=== PATIENT | male | born 2000 | race Caucasian/White ===

== ENCOUNTER 2022-11-09 20:46 | Emergency (ER) | payer OTHER, SELFPAY ==
[2022-11-09 21:02] VITALS: BP 120/81; PULSE 70; RESP 16; TEMP 36.6; O2SAT 100; BMI 29.9
--- NOTE | 2022-11-09 21:09 | DI.RAD.S_ITS ---
PROCEDURE: XR ANKLE RT MIN 3V INDICATIONS: Rolled ankle while playing volleyball, now unable to put RLE TECHNIQUE: 3 views of the ankle were acquired. COMPARISON: None. FINDINGS: Bones: No fractures or dislocations. Ankle mortise is normally aligned. No suspicious bony lesions. Soft tissues: No tibiotalar joint effusion. There is periarticular soft tissue swelling laterally. Achilles tendon appears intact. IMPRESSION: 1. No fracture or dislocation. Dictated by: Walter Gardner M.D. on 11/09/2022 at 22:40 Approved by: Walter Gardner M.D. on 11/09/2022 at 22:40
--- NOTE | 2022-11-09 21:37 | ED_ITS ---
HPI - Extremity Injury (Lower) General Chief Complaint: Extremity Injury, Lower Stated Complaint: R ankle pain after fall/rolled ankle Time Seen by Provider: 11/09/22 20:48 Source: patient Mode of arrival: Wheelchair History of Present Illness HPI Narrative: 22-year-old male nonsmoker without chronic medical history presents for evaluation of right ankle pain after inverting it while playing volleyball. He states he went up to the neck to perform a block and when he came down he stepped on another person's ankle which forced him to forcefully invert his ankle. Now he has pain and swelling over the lateral malleolus. He has signif icant pain with ambulation but denies any numbness, tingling or weakness. He has no hip or knee injury. He has no chest pain or shortness of breath and denies any other injury. Review of Systems Review of Systems Narrative: GENERAL: Denies chills, fatigue, malaise, fever, sweats. HEENT: Denies sinus pain, ear pain, sore throat, difficulty swallowing, dizziness. RESPIRATORY: Denies dyspnea, cough, wheezing, hemoptysis, sputum. CARDIOVASCULAR: Denies chest pain, palpitations, orthopnea, edema, GASTROINTESTINAL: Denies nausea, vomiting, abdominal pain, diarrhea, constipation, melena. : Denies dysuria, frequency, incontinence, hematuria, urinary retention. MUSCULOSKELETAL: See HPI SKIN: Denies rash, skin lesions, or other NEUROLOGIC: Denies weakness, headache, numbness, change in speech, confusion, seizures, incoordination. PSYCHIATRIC: No concerning psychosocial issues. 12 point review of systems is negative except for those stated above Patient History Social History Smoking Status: Never smoker Smoking Status: Never smoker Substance Use Type: does not use Exam Narrative Exam Narrative: GENERAL: [22] year old patient appears stated age. Well-developed patient, in mild distress. HEAD: Atraumatic. Normocephalic. EYES: Pupils equal round and reactive. Extraocular motions intact. No scleral icterus. No injection or drainage. ENT: Nose without bleeding, purulent drainage. Throat without erythema, tonsillar hypertrophy or exudate. Airway patent. NECK: Trachea midline. Non tender CARDIOVASCULAR: Regular rate and rhythm without murmurs, gallops, or rubs. RESPIRATORY: Clear to auscultation. Breath sounds equal bilaterally. No wheezes, rales, or rhonchi. GASTROINTESTINAL: Abdomen soft, non-tender, nondistended. EXTREMITIES: Pain and swelling with some ecchymosis over the right lateral malleolus. There is no ligamentous instability. No pain at knee, particularly proximal fibula. No pain with squeeze test. This is closed, isolated and neurovascularly intact. BACK: Nontender without deformity or crepitance. No flank tenderness. NEURO: AOx3. SKIN: No rash or erythema of visible areas Initial Vital Signs Initial Vital Signs: Vital Signs Temperature 97.9 F 11/09/22 21:02 Pulse Rate 70 11/09/22 21:02 Respiratory Rate 16 11/09/22 21:02 Blood Pressure 120/81 11/09/22 21:02 Pulse Oximetry 100 11/09/22 21:02 Oxygen Delivery Method Room Air 11/09/22 21:02 Procedures Orthopedic Splinting/Casting Injury #1: Lower Extremity Injury Location: ankle Lower Extremity Immobilizer: stirrup splint Post splinting neuro exam: intact Post splinting vascular exam: intact Placed by: Nursing Course Orders Ordered: ED Orders 11/09/22 21:09 XR ankle RT min 3V Stat Vital Signs Vital signs: Vital Signs - 8 hr 11/09/22 21:02 11/09/22 23:12 Temperature 97.9 F 98 F Pulse Rate 70 81 Respiratory Rate 16 16 Blood Pressure 120/81 122/81 Pulse Oximetry 100 100 Oxygen Delivery Method Room Air Room Air MDM - Extremity Injury (Lower) MDM Narrative Medical decision making narrative: [22] year old patient presents with ankle pain after rolling his ankle Multiple etiologies for patient's symptoms considered including, but not limited to: [Fracture, sprain, high ankle sprain, Achilles injury, versus other Prior Charts reviewed in our EMR Primary Historian: patient Imaging reviewed: No fracture or dislocation Patient with swelling and ecchymosis over the lateral malleolus after reported inversion injury. This is closed, isolated and neurovascularly intact without evidence of ligamentous instability. There is no pain over anterior talus, pain with squeeze test to suggest high ankle sprain, no pain on proximal fibula. X- ray is reassuring and patient has splinted, given crutches and encouraged to follow-up Findings and discharge diagnosis discussed with patient/family followed by verbalization of understanding Return precautions discussed with patient/family whom verbalize understanding of diagnosis and plan Discharge Plan Departure Patient Disposition: Home Clinical Impression: Ankle sprain and strain Instructions: DI for Ankle Sprain Activity Restrictions/Additional Instructions: *You have been diagnosed with [right ankle sprain] *What to do: *Please continue to take your regular medications as directed. [ ] New medication prescriptions sent to your pharmacy: [ ] [ ] New medication written as a paper prescription [x] Tylenol and occasional Motrin for pain *Please follow up with [Ceferino ] of [facility] in 2-3 days, call for an appointment. Let them know you were seen in the Emergency Department and that we ask that you be seen in follow up. We will electronically transmit a record of today's note if your PCP is in our system *Use of crutches, splint, and weight bearing as tolerated with close orthopedic follow up *Return to Emergency Department if you should have any new, worsening or concerning symptoms, such as [worsening pain, significant swelling, cold extremities, numbness, tingling, weakness or other bothersome symptoms Splint Care: Keep splint clean and dry. Elevated affected body part to decrease swelling. OK to use ice pack on the affected body part. Use for 15-20 minutes each time, for 5-6x per day. If you develop worsening pain, numbness, tingling, discoloration of the affected body part, loosen the splint by loosening the JOSHUA wrap, and either see your doctor for an urgent re-assessment, or return to the Emergency Department. Return to the Emergency Department for any new or worsening symptoms. Referrals: Provider,Reny VINES [Primary Care Provider] - Abhishek De La Vega MD [Physician] - Stand Alone Forms: Patient Portal/API
[2022-11-09 23:12] VITALS: BP 122/81; PULSE 81; RESP 16; TEMP 36.6; O2SAT 100
== END 2022-11-09 23:15 | disposition home or self-care (01) ==
PROVIDERS: Emergency Provider Emergency Medicine
DX: S93.401A Sprain of unspecified ligament of right ankle, initial encounter (principal); S96.911A Strain of unspecified muscle and tendon at ankle and foot level, right foot, initial encounter; X50.1XXA Overexertion from prolonged static or awkward postures, initial encounter; Y93.68 Activity, volleyball (beach) (court)
CPT/HCPCS: 29540; 73610; 99282; 99283

== ENCOUNTER 2022-11-17 21:03 | Emergency (ER) | payer OTHER, SELFPAY ==
[2022-11-17 21:10] VITALS: BP 153/87; PULSE 53; RESP 18; TEMP 36.7; O2SAT 100; BMI 29.9
--- NOTE | 2022-11-17 21:11 | ED_ITS ---
HPI - Extremity Injury (Lower) General Chief Complaint: Skin/Abscess/Foreign Body Stated Complaint: rt ankle injury Time Seen by Provider: 11/17/22 21:11 History of Present Illness HPI Narrative: 22M nonsmoker presents with his significant other and a chief complaint of ongoing if not worsening pain in his right ankle. I had seen and evaluated him myself about 1 week ago when he inverted his right ankle while playing volleyball and had pain over the lateral portion of his foot with normal x-rays and no evidence of fracture or dislocation. He was given a fracture boot, crutches encouraged nonweightbearing initially and then weight-bearing as tolerated and was given contact information for ortho. He was able to follow-up with his flight surgeon who performed an exam and encouraged follow-up with physical therapy. The patient admits that he has been icing it 20 minutes at a time and has always had a sock on while wearing the boot but presents today because pain is worsening and there is redness to the skin overlying his injury. He is had no fever or chills, denies any drainage and has had no red streaking or other. Related Data Allergies Allergy/AdvReac Type Severity Reaction Status Date / Time No Known Drug Allergies Allergy Verified 11/17/22 21:10 Review of Systems Review of Systems Narrative: GENERAL: Denies chills, fatigue, malaise, fever, sweats. HEENT: Denies sinus pain, ear pain, sore throat, difficulty swallowing, dizziness. RESPIRATORY: Denies dyspnea, cough, wheezing, hemoptysis, sputum. CARDIOVASCULAR: Denies chest pain, palpitations, orthopnea, edema, GASTROINTESTINAL: Denies nausea, vomiting, abdominal pain, diarrhea, constipation, melena. : Denies dysuria, frequency, incontinence, hematuria, urinary retention. MUSCULOSKELETAL: See HPI SKIN see HPI NEUROLOGIC: Denies weakness, headache, numbness, change in speech, confusion, seizures, incoordination. PSYCHIATRIC: No concerning psychosocial issues. 12 point review of systems is negative except for those stated above Patient History Social History Smoking Status: Never smoker Smoking Status: Never smoker Substance Use Type: does not use Exam Narrative Exam Narrative: GENERAL: [22] year old patient appears stated age. Well-developed patient, in mild distress. HEAD: Atraumatic. Normocephalic. EYES: Pupils equal round and reactive. Extraocular motions intact. No scleral icterus. No injection or drainage. ENT: Nose without bleeding, purulent drainage. Throat without erythema, tonsillar hypertrophy or exudate. Airway patent. NECK: Trachea midline. Non tender CARDIOVASCULAR: Regular rate and rhythm without murmurs, gallops, or rubs. RESPIRATORY: Clear to auscultation. Breath sounds equal bilaterally. No wheezes, rales, or rhonchi. GASTROINTESTINAL: Abdomen soft, non-tender, nondistended. EXTREMITIES: Right lateral ankle and dorsum of foot with some swelling and yellowing bruising. There is no break in the skin, there is a patch of erythematous skin without fluctuance, drainage or lymphangitis. BACK: Nontender without deformity or crepitance. No flank tenderness. NEURO: AOx3. SKIN: No rash or erythema of visible areas Initial Vital Signs Initial Vital Signs: Vital Signs Temperature 98.1 F 11/17/22 21:10 Pulse Rate 53 L 11/17/22 21:10 Respiratory Rate 18 11/17/22 21:10 Blood Pressure 153/87 H 11/17/22 21:10 Pulse Oximetry 100 11/17/22 21:10 Oxygen Delivery Method Room Air 11/17/22 21:10 Course Orders Ordered: ED Orders 11/17/22 21:19 XR ankle RT min 3V Stat 11/17/22 22:08 CT LE RT wo con Stat Discontinued Medications Hydrocodone Bitart/Acetaminophen (Hydrocodone/Acet 5/325 Prepack) 1 bottle MISC SEEINSTR ONE Stop: 11/17/22 23:20 Last Admin: 11/17/22 23:40 Dose: 1 bottle Documented By: ORESTES Bacitracin (Bacitracin Oint 0.9 Gm Pckt) 1 applic TOP NOW ONE Stop: 11/17/22 23:19 Last Admin: 11/17/22 23:40 Dose: 1 applic Documented By: ORESTES Vital Signs Vital signs: Vital Signs - 8 hr 11/17/22 21:10 11/17/22 23:49 Temperature 98.1 F Pulse Rate 53 L 61 Respiratory Rate 18 Blood Pressure 153/87 H 125/69 Pulse Oximetry 100 99 Oxygen Delivery Method Room Air Room Air MDM - Extremity Injury (Lower) MDM Narrative Medical decision making narrative: CC: 22-year-old returns for evaluation of right ankle injury Complicating co-morbidities: None known Data collected from: Patient Medical records reviewed: Prior notes reviewed in our EMR Differential considered, but not limited to: Occult fracture, sprain, cellulitis versus contact dermatitis versus pressure breakdown Exam documented above, pertinent findings include: Heart rate regular, lungs clear, abdomen soft, no pain in knee. There is tenderness over the right lateral malleolus and dorsal lateral foot with yellowing ecchymosis and a central area of erythema and tenderness most consistent with a mild pressure sore or irritation from the boot Independently reviewed EKG as above Imaging studies independently reviewed: X-ray without acute finding, CT performed after extensive discussion with patient which shows no fracture, dislocation, hematoma or fluid collection Treatments: Bacitracin placed on skin Discussion: Patient with largely very reassuring history and physical exam, repeat imaging shows no fracture or dislocation. There is aging ecchymosis and a central area of erythema. No induration or fluctuance, no drainage, no lymphangitis and no systemic complaints such as fever or chills. He has been placing ice on his foot and likely has some increased pressure on his lateral foot due to the swelling and wearing of a boot. I encouraged him to no longer wear a boot and avoid putting ice on his foot into leave it open to the environment with the use of Neosporin, close follow-up. He was again given contact information for orthopedics and a lengthy discussion of return precautions Disposition: see below, along with detailed discharge instructions that have been reviewed with patient as well as indications for ED re-evaluation and additional outpatient follow up Discharge Plan Departure Patient Disposition: Home Clinical Impression: Ankle sprain and strain Instructions: DI for Ankle Pain Activity Restrictions/Additional Instructions: *You have been diagnosed with [right ankle sprain without evidence of bony involvement. Possible pressure sore vs. dermatitis] *What to do: *Please continue to take your regular medications as directed. [ ] New medication prescriptions sent to your pharmacy: [ ] [ ] New medication written as a paper prescription [ ] No new medications given *Please follow up with your primary care provider in 2-3 days, call for an appointment. Let them know you were seen in the Emergency Department and that we ask that you be seen in follow up. We will electronically transmit a record of today's note if your PCP is in our system *If you do not have a primary care provider please contact the [facility] Resource line at [phone]. They will ask some questions about your medical history and help get you set up with a doctor in the community. *Return to Emergency Department if you should have any new, worsening or concerning symptoms, such as [fever greater than 101 F, shaking chills, worsening pain, persistent vomiting or other bothersome symptoms] Referrals: ProviderReny [Primary Care Provider] - Gail Turner MD [Physician] - Stand Alone Forms: Patient Portal/API
--- NOTE | 2022-11-17 21:15 | PC.NURSE ---
Pt reports worsening redness to his right ankle that he noticed after waking up this morning. Pt recently seen for right ankle injury/sprain on 11/09/22. Yellow and dark purple bruising noted to his right ankle with redness on top of foot. Pt reports intermittent numbness and tingling to the toes. Strong pedal pulse of right foot palpated.
--- NOTE | 2022-11-17 21:19 | DI.RAD.S_ITS ---
PROCEDURE: XR ANKLE RT MIN 3V INDICATIONS: worsening pain in ankle, seen a week ago with normal films TECHNIQUE: 3 views of the ankle were acquired. COMPARISON: [facility], CR, XR ANKLE RT MIN 3V, 11/09/2022, 21:08. FINDINGS: Bones: No fractures or dislocations. Ankle mortise is normally aligned. No suspicious bony lesions. Soft tissues: No tibiotalar joint effusion. Achilles tendon appears normal. IMPRESSION: No osseous trauma or malalignment found. Dictated by: Jeremiah Domínguez M.D. on 11/17/2022 at 21:36 Approved by: Jeremiah Domínguez M.D. on 11/17/2022 at 21:37
--- NOTE | 2022-11-17 22:08 | DI.CT.S_ITS ---
PROCEDURE: CT LE RT WO CON INDICATIONS: severe lateral ankle pain, swelling recent trauma TECHNIQUE: Noncontrast 1-1.5 mm axial sections acquired from above the tibiotalar joint to the bottom of the calcaneus, with coronal and sagittal reformats. COMPARISON: None. FINDINGS: Image quality: Excellent. Bones: No fracture found. Soft tissues: Prominent lateral soft tissue swelling, without hematoma within. Contusion is the presumed cause in this clinical setting. IMPRESSION: Soft tissue injury without underlying fracture. Extensive lateral soft tissue contusion without focal hematoma identified. Dictated by: Jeremiah Domínguez M.D. on 11/17/2022 at 23:03 Approved by: Jeremiah Domínguez M.D. on 11/17/2022 at 23:05
[2022-11-17] MEDS: HYDROCODONE/ACET 5/325 PREPACK 1 BOTTLE MISC (23:40)
[2022-11-17] MEDS: BACITRACIN OINT 0.9 GM PCKT 1 APPLIC TOP (23:40)
[2022-11-17 23:49] VITALS: BP 125/69; PULSE 61; O2SAT 99
== END 2022-11-17 23:58 | disposition home or self-care (01) ==
PROVIDERS: Emergency Provider Emergency Medicine
DX: S93.401A Sprain of unspecified ligament of right ankle, initial encounter (principal); S96.911A Strain of unspecified muscle and tendon at ankle and foot level, right foot, initial encounter; X50.1XXA Overexertion from prolonged static or awkward postures, initial encounter; Y93.68 Activity, volleyball (beach) (court)
CPT/HCPCS: 73610; 73700; 99284